=== PATIENT | male | born 1985 | race Two or more races ===

== ENCOUNTER 2018-12-22 18:16 | Emergency (ER) | payer MEDICAID ==
[~2018-12-22] VITALS: Ht 172.7 cm; Wt 165.0 kg
[2018-12-22 20:06] VITALS: BP 109/82
== END 2018-12-22 20:09 | disposition home or self-care (01) ==
LOC: ER 18:36
DX: T40.1X1A Poisoning by heroin, accidental (unintentional), initial encounter (principal); M25.539 Pain in unspecified wrist; F12.10 Cannabis abuse, uncomplicated; F17.200 Nicotine dependence, unspecified, uncomplicated; Y92.89 Other specified places as the place of occurrence of the external cause
CPT/HCPCS: 99283

== ENCOUNTER 2022-01-27 09:37 | Emergency (ER) | payer MEDICAID, OTHER ==
[~2022-01-27] VITALS: Ht 177.8 cm; Wt 77.0 kg
[2022-01-27 10:52] LABS: EOSINOPHILS % 1.9 % (0.0-5.0); HEMATOCRIT. 44.5 % (42.0-52.0); HEMOGLOBIN. 14.7 g/dL (14.0-18.0); MEAN CORPUSCULAR HEMOGLOBIN 31.1 pg (28.0-32.0); MEAN CORPUSCULAR VOLUME 94.1 fL (80.0-94.0); MEAN PLATELET VOLUME 7.8 fl (7.4-10.4); MONOCYTES % 7.5 % (2.0-8.0); NEUTROPHILS % 68.6 % (40.0-76.0); PLATELET 224 x1000/uL (130-400); RED BLOOD CELL COUNT 4.73 mill/uL (4.7-6.1); RED CELL DISTRIBUTION WIDTH 14.7 % (11.6-14.6)
[2022-01-27 10:58] LABS: CHLORIDE 107 mEq/L (98-107)
[2022-01-27 11:38] LABS: ETHANOL BLOOD < 10 mg/dL
[2022-01-27] MEDS ORDERED: LORAZEPAM 1MG TABLET PO ONE ×2 (17:45→20:45)
[2022-01-27] MEDS ORDERED: DIPHENHYDRAMINE 50MG CAPSULE PO ONE (17:45)
[2022-01-27] MEDS ORDERED: QUETIAPINE FUMARATE 50MG TABLET PO ONE (20:45)
[2022-01-27 22:50] LABS: CLARITY URINE CLEAR (CLEAR); COLOR URINE YELLOW (YELLOW); KETONES URINE TRACE (NEGATIVE); LEUKOCYTE ESTERASE URINE TRACE (NEGATIVE); NITRITE URINE NEGATIVE (NEGATIVE); OCCULT BLOOD URINE NEGATIVE (NEGATIVE); PROTEIN URINE TRACE (NEGATIVE); SPECIFIC GRAVITY URINE 1.029 (1.005-1.030)
[2022-01-27 23:07] LABS: *AMPHETAMINES SCREEN URINE NEGATIVE (NEGATIVE); *BARBITURATES SCREEN URINE NEGATIVE (NEGATIVE); *BENZODIAZEPINES SCREEN URINE NEGATIVE (NEGATIVE); *COCAINE SCREEN URINE NEGATIVE (NEGATIVE); CANNABINOID URINE SCREEN PRESUMTIVE POSITIVE (NEGATIVE); METHADONE URINE SCREEN NEGATIVE (NEGATIVE); OPIATES URINE SCREEN NEGATIVE (NEGATIVE); PHENCYCLIDINE URINE SCREEN NEGATIVE (NEGATIVE)
[2022-01-28] MEDS ORDERED: QUETIAPINE FUMARATE 50MG TABLET PO SCH ×2 (00:45)
[2022-01-28] MEDS ORDERED: QUETIAPINE FUMARATE 50MG TABLET PO NR (09:00)
[2022-01-28] MEDS: HALOPERIDOL 5MG TABLET PO SCH ×2 (14:35→19:00)
[2022-01-28] MEDS: BUPROPION HCL 150MG TABLET XL 24HR PO SCH (14:35)
[2022-01-28] MEDS ORDERED: LORAZEPAM 1MG TABLET PO ONE (15:30)
[2022-01-28] MEDS ORDERED: DIPHENHYDRAMINE 50MG CAPSULE PO ONE (15:30)
[2022-01-28] MEDS: BENZTROPINE MESYLATE 0.5MG TABLET PO SCH (21:00)
[2022-01-29] MEDS: BUPROPION HCL 150MG TABLET XL 24HR PO SCH (10:22)
[2022-01-29] MEDS: BENZTROPINE MESYLATE 0.5MG TABLET PO SCH (10:22)
[2022-01-29] MEDS: HALOPERIDOL 5MG TABLET PO SCH (10:22)
[2022-01-29] MEDS ORDERED: ARIPIPRAZOLE 5MG TABLET PO SCH (12:00)
[2022-01-29] MEDS ORDERED: LORAZEPAM 1MG TABLET PO NR (12:00)
[2022-01-29 19:20] VITALS: BP 125/71
== END 2022-01-29 19:33 ==
LOC: ER 09:54
DX: R45.851 Suicidal ideations (principal); F31.9 Bipolar disorder, unspecified; F12.10 Cannabis abuse, uncomplicated; Z20.822 Contact with and (suspected) exposure to COVID-19
CPT/HCPCS: 36415; 80053; 80305; 80320; 81003; 85025; 99285; C9803; J1630; Q0163; U0003; U0005; Z7610; G0480